=== PATIENT | male | born 1955 | race Caucasian/White ===

== ENCOUNTER → 2023-08-31 13:29 | Outpatient (BNVA) | payer MEDICARE, BC, SELFPAY | PROVIDERS: PCP Internal Medicine; Referring Provider Internal Medicine; Visit Provider Student in an Organized Health Care Education/Training Program | DX: R10.13 Epigastric pain (principal); R11.0 Nausea; Z87.11 Personal history of peptic ulcer disease; F10.90 Alcohol use, unspecified, uncomplicated; Z80.0 Family history of malignant neoplasm of digestive organs | CPT/HCPCS: 99204 ==

== ENCOUNTER 2023-11-08 09:54 | Day surgery (SDC) | payer MEDICARE, BC, SELFPAY ==
[2023-11-08 10:31] VITALS: BP 143/89; PULSE 55; RESP 16; TEMP 36; O2SAT 97
[2023-11-08] MEDS: Lactated Ringers 1,000 ML 80 ML IV (10:45)
--- NOTE | 2023-11-08 10:52 | W.SURGCON ---
Date of service: 11/08/23 Time of Service: 10:53 Assessment and Plan Assessment and plan (1) Stomach ulcer: Status: Acute Assessment and plan: 67-year-old man with a history of stomach ulcers and who has ongoing nausea and dyspepsia. Unclear etiology or significance because he otherwise seems to be getting along just fine with life and the chronicity of the symptoms extensive. After careful and detailed discussion, the patient himself actually thinks it is probably related to excessive alcohol intake on a daily basis as well as possibly being coupled with or in addition to a significant/excessive amount of caffeine. He is not really sure but is suspicious. This is certainly possibility and needs to be considered but I do think an endoscopy is warranted. Considering the history of stomach ulcers and I do symptoms are similar, malignancy should be ruled out with biopsies. H. pylori should also be ruled out. I did tell him that he can consider alcohol cessation for a number of months to see whether or not it makes him feel better but that would be on his own terms and deciphered and discussed with his PCP. Even if he chooses to do this, I do not think this over rules the need for an EGD just to make sure there is no underlying pathology such as gastric cancer. Patient understands the risks, indications and the likely benefits of endoscopy and does agree and wishes to proceed. He understands that elective alcohol cessation is within his own ability to experiment and decipher and will consider. He realizes and expresses an understanding that his EGD may be completely normal and biopsies could be normal too. For his colonoscopies, he has a follow-up plan up at [facility] and I reassured him that that follow-up plan makes sense. Overall plan: EGD with biopsies Qualifiers: Gastric ulcer chronicity: unspecified ulcer chronicity Gastric ulcer complication status: without hemorrhage or perforation Qualified Code(s): K25.9 - Gastric ulcer, unspecified as acute or chronic, without hemorrhage or perforation History of Present Illness Narrative: Patient here for upper endoscopy PFSH All Active Problems Stomach ulcer (Acute) Medical History IBS (irritable bowel syndrome) BPH with obstruction/lower urinary tract symptoms Allergic rhinitis WILFREDO (obstructive sleep apnea) Squamous cell carcinoma of skin unspecified lower limb, including hip Hyperlipidemia Essential (primary) hypertension Surgical History Hx of esophagogastroduodenoscopy Hx of colonoscopy S/P right rotator cuff repair H/O vasectomy Hx of arthroscopy of left knee Hx of sinus surgery Social History Smoking/Tobacco Use Status: Former Tobacco Use Quit Date: 03/13/85 Smoking risk assessment performed?: Yes Alcohol Intake: current Alcohol Intake frequency: 3 or more drinks per day Alcohol type: wine Drug use: Never Substance use type: does not use Housing: house Do you feel safe at home: Yes Do you feel safe in your relationship?: Yes Exam Narrative Exam Narrative: General: Nontoxic, comfortable and interactive Neuro: Alert and orient x 3 Psych: Good mood and affect, good insight and understanding Chest: Nonlabored breathing, no shortness of breath or wheezing Heart: Regular Results Last Vital Signs Temp 96.8 F L 11/08/23 10:31 Pulse 55 L 11/08/23 10:31 Resp 16 11/08/23 10:31 BP 143/89 H 11/08/23 10:31 Pulse Ox 97 11/08/23 10:31
--- NOTE | 2023-11-08 10:54 | W.PM.ENDDOP ---
Date of service: 11/08/23 Time of Service: 10:54 Endoscopy Report PROCEDURE DESCRIPTION: PROCEDURES PERFORMED: 1. EGD with biopsies PREOPERATIVE DIAGNOSIS: Dyspepsia, history of ulcers POSTOPERATIVE DIAGNOSIS: Chronic gastritis, small (1 cm) Hill grade 1 hiatal hernia, bile reflux SURGEON: Holly Verdin MD INDICATION FOR PROCEDURE: 67-year-old male with persistent and ongoing dyspepsia, and has a history of ulcers and significant alcohol intake. FINDINGS: D2/D3 = normal D1/bulb = normal - no ulcers or inflammation Pylorus = normal Antrum = chronic gastritis appearance, no ulcers, cold forceps biopsies were taken to rule out H. pylori routinely. Bile was witnessed refluxing during the procedure. He may have bile reflux gastropathy rather than gastritis. Body = chronic gastritis appearance, biopsies taken with cold forceps technique routinely Fundus = normal, no polyps Cardia = normal Hiatus = small (1 cm) sliding hiatal hernia. Distal esophagus = despite the hernia, no visible inflammation, no esophagitis, no Rahman's, no stricture. I took biopsies because of the hernia. Mid esophagus = normal Proximal esophagus/hypopharynx/vocal cords = normal SURVEILLANCE-INTERVAL/FOLLOW-UP: Follow-up with PCP. likely no role for surveillance. Specimens: Yes EBL: Minimal COMPLICATIONS: None Procedure in detail: The patient gave written consent and was in agreement with the indications, the potential risks as well as the benefits of the procedure. The patient was taken to the endoscopy suite and laid on their left side. Anesthesia was given which was tolerated well. We performed a timeout and we are in agreement I started the procedure. A well-lubricated endoscope was gently and carefully advanced down the esophagus, into the stomach the scope was and through the pylorus into the duodenum. The scope was then slowly withdrawn with the above-noted findings/interventions. The patient tolerated the procedure well and was taken to the PACU stable.
--- NOTE | 2023-11-08 10:56 | W.PM.DSUDISC ---
Date of service: 11/08/23 Time of Service: 10:56 Discharge Plan Disposition Patient Disposition: Home Condition: Good Discharge Details Attending Provider: Nicola Verdin Primary Care Provider: Pat Ramsey Home Meds and New Rx's Prescriptions: No Action montelukast 10 mg tablet 10 mg PO QHS hydrochlorothiazide 25 mg tablet 25 mg PO DAILY tamsulosin 0.4 mg capsule 0.8 mg PO DAILY escitalopram oxalate 10 mg tablet 10 mg PO DAILY metoprolol succinate 50 mg tablet extended release 24 hr 50 mg PO DAILY pravastatin 40 mg tablet 40 mg PO DAILY omeprazole 40 mg capsule,delayed release(DR/EC) 40 mg PO DAILY mometasone 50 mcg/actuation spray,non-aerosol 1 spray intranasal DAILY Rx Instructions: administer into each nostril Dupixent Pen 300 mg/2 mL pen injector 300 mg SUBCUT .q2week acetaminophen [Acetaminophen Extra Strength] 500 mg tablet 500 mg PO ONCE Patient Comments: 1000 mg Discharge Instructions Additional Instructions: FINDINGS: Some chronic?appearing inflammation was seen in your stomach. This may be related to chronic alcohol intake or it may be related to something called by reflux. You can discuss further with your PCP. It is probably the cause of your symptoms. Biopsies were taken routinely. You have a small hiatal hernia. This is unlikely to be causing any issues and nothing needs to be done about it. Overall, follow-up with your PCP as needed. Activity:: Activity as Tolerated Diet:: As Tolerated DS: Diagnosis Discharge Diagnosis (1) Stomach ulcer: Status: Acute
[2023-11-08 11:26] VITALS: BMI 29.9
--- NOTE | 2023-11-08 11:26 | W.ANESPRE ---
General Info Date of Service Date Performed: 11/08/23 Height: 5 ft 6 in Weight: 84.3 kg Body Mass Index (BMI): 29.9 Surgical Procedure: Operation Date: 11/08/23 11:20 Proposed Procedure Side Surgeon p Gastroscopy Nicola Verdin MD Actual Procedure Side Surgeon p Gastroscopy Not Applicable Nicola Verdin MD Meds Allergies and Home Medications Allergies Allergy/AdvReac Type Severity Reaction Status Date / Time Penicillins Allergy Unknown Itching Verified 11/08/23 10:22 Home Medication ?Medication ?Instructions ?Recorded escitalopram oxalate 10 mg tablet 10 mg PO DAILY 08/14/23 hydrochlorothiazide 25 mg tablet 25 mg PO DAILY 08/14/23 metoprolol succinate 50 mg 50 mg PO DAILY 08/14/23 tablet,extended release 24 hr mometasone 50 mcg/actuation nasal 1 spray intranasal DAILY 08/14/23 spray omeprazole 40 mg capsule,delayed 40 mg PO DAILY 08/14/23 release pravastatin 40 mg tablet 40 mg PO DAILY 08/14/23 tamsulosin 0.4 mg capsule 0.8 mg PO DAILY 08/14/23 montelukast 10 mg tablet 10 mg PO QHS 08/31/23 dupilumab 300 mg/2 mL subcutaneous 300 mg subcut .q2week Nasal polyps 11/07/23 pen injector (Dupixent) acetaminophen 500 mg tablet 500 mg PO ONCE 11/08/23 (Acetaminophen Extra Strength) Current Visit Medications: Current Medications Generic Name Dose Route Start Last Admin Trade Name Freq PRN Reason Stop Dose Admin Ringer's Solution 1,000 mls @ 80 mls/hr 11/08/23 06:00 11/08/23 10:45 IV 11/08/23 23:59 80 mls/hr INFUSION JASS Administration IV Miscellaneous Supplies 1 each 11/08/23 06:00 Iv Access IV 11/08/23 23:59 DIRECTED JASS Sodium Chloride 0 ml 11/08/23 06:00 Normal Saline Flush 10 Ml Syr IV 11/08/23 23:59 PRN PRN Sodium Chloride 0 ml 11/08/23 06:00 Normal Saline 10 Ml Vial IJ 11/08/23 23:59 DIRECTED PRN Sterile Water 0 ml 11/08/23 06:00 Water,Injection,Sterile 10 Ml Vial IJ 11/08/23 23:59 DIRECTED PRN PFSH Active Problems Active Problems: Problem Status Onset Code Stomach ulcer Acute K25.9 Medical History Medical History IBS (irritable bowel syndrome) BPH with obstruction/lower urinary tract symptoms Allergic rhinitis WILFREDO (obstructive sleep apnea) Squamous cell carcinoma of skin unspecified lower limb, including hip Hyperlipidemia Essential (primary) hypertension Surgical History Surgical History Hx of esophagogastroduodenoscopy Hx of colonoscopy S/P right rotator cuff repair H/O vasectomy Hx of arthroscopy of left knee Hx of sinus surgery Tobacco Smoking/Tobacco Use Status: Former Tobacco Use Alcohol Alcohol Intake: current Alcohol intake frequency: 3 or more drinks per day Alcohol type: wine Substance Use Substance use: Never Substance use type: does not use Vital Signs and Lab Results Vital Signs Most Recent Vital Signs in EMR: Most Recent Vital Signs Temp Pulse Resp BP Pulse Ox 36 C L 55 L 16 143/89 H 97 11/08/23 10:31 11/08/23 10:31 11/08/23 10:31 11/08/23 10:31 11/08/23 10:31 Lab Results Blood Type / Crossmatch: No Data to Display Complete Blood Count: No Data to Display Complete Metabolic Panel: No Data to Display Liver Function Panel: No Data to Display Coagulation Panel: No Data to Display Cardiac Panel: No Data to Display Arterial Blood Gas: No Data to Display Venous Blood Gas: No Data to Display Pancreas Panel: No Data to Display Thyroid Panel: No Data to Display Infectious Disease: No Data to Display Blood Cultures: No Data to Display Toxicology Panel: No Data to Display Anesthesia Assessment and Plan Anesthesia History Personal History: No History of Anesthesia Complications Family History: No Family History of Anesthesia Complications Exercise Tolerance Exercise Tolerance: Metabolic Equivalents>4 Pertinent Negatives Pertinent Negatives: No Symptoms of GERD Cardiac & Pulmonary Exam Cardiac Exam: Normal S1/S2 Heart Sounds Pulmonary Exam: Clear Bilateral Breath Sounds Implantable Cardiac Device Does patient have a Pacemaker or an ICD?: No Airway Exam Known Difficult Airway: No Mallampati Class: 2 Mouth Opening: Normal (> 3cm) Thyromental Distance: Greater than 3 cm Neck Range of Motion: Full ROM Neck Circumference: Normal Teeth Condition: Normal Dentition and Removable Dentures/Plates Lower (partial) ASA Classification ASA Score: ASA 2 Emergency Case?: No NPO Status NPO Status: NPO Clears >2 hours, Solids >8 hours Anesthesia Plan Resuscitation Status: Full Code Anesthesia Technique: General Anesthesia Airway Planned: Natural Airway Monitors Used: Standard Monitors
--- NOTE | 2023-11-08 11:42 | STOM_PTH ---
PATIENT: Iain Alejandra LOC: [facility] U#:[id number] AGE/SX: 67/M ROOM: RE11/08/[address]: Nicola Verdin : 1955 BED: DIS: 11/08/2023 SPEC #: [id number] RECD: 11/08/23 13:27 STATUS: HARSHAD ORNELAS #: [id number] [place]: 11/08/23 11:[address]: Nicola Verdin DEPT: Surgical Specimen RECD BY: Diana Amaral ENTERED: 11/08/23 13:28 SP TYPE: STOMACH OTHR DR: Pat Ramsey Tissues: 1 - STOMACH BIOPSY 2 - STOMACH BIOPSY 3 - STOMACH BIOPSY 4 - ESOPHAGUS BIOPSY Procedures: GROSS AND MICRO LEVEL 4 IMMUNOPEROXIDASE STAIN Comments: [id number]
[2023-11-08 11:53] VITALS: BP 109/84; PULSE 69; RESP 18; TEMP 36.8; O2SAT 92
[2023-11-08 12:16] VITALS: BP 119/70; PULSE 56; RESP 18; TEMP 37; O2SAT 96
--- NOTE | 2023-11-08 12:53 | W.ANESPOSTOP ---
Postoperative Evaluation Date, Time and Location Date Performed: 11/08/23 Time Performed: 11:55 Patient Location: Day Surgery Unit Vital Signs Most Recent Imported Vital Signs: Most Recent Vital Signs Temp Pulse Resp BP Pulse Ox 37 C 56 L 18 119/70 96 11/08/23 12:16 11/08/23 12:16 11/08/23 12:16 11/08/23 12:16 11/08/23 12:16 Pain Score Most Recent Pain Score: Most Recent Pain Score Pain Level 0 11/08/23 12:16 Assessment Mental Status: Awake (Alert & Oriented to Patient Baseline) Airway and Respiratory Function: Patent airway with normal (patient baseline) respiratory exam Cardiovascular Function: Hemodynamically Stable Hydration Status: Adequately Hydrated Nausea & Vomiting: No Nausea or Vomiting Pain: Pt. Denies Any Pain Peripheral Nerve Block: Patient did not receive a nerve block
== END 2023-11-08 12:30 | disposition home or self-care (01) ==
PROVIDERS: PCP Internal Medicine; Visit Provider Student in an Organized Health Care Education/Training Program
PROC: 0DJ68ZZ Inspection of Stomach, Via Natural or Artificial Opening Endoscopic (ICD-10-PCS; CPT 43235; principal; 2023-11-08 11:15)
DX: K25.9 Gastric ulcer, unspecified as acute or chronic, without hemorrhage or perforation (principal); K44.9 Diaphragmatic hernia without obstruction or gangrene; K29.50 Unspecified chronic gastritis without bleeding; E78.70 Disorder of bile acid and cholesterol metabolism, unspecified; Z87.11 Personal history of peptic ulcer disease; K22.89 Other specified disease of esophagus
CPT/HCPCS: 43239; 00123; 88305; 88361; J2001; J2704

== ENCOUNTER → 2024-08-08 10:43 | Outpatient (BNVA) | payer MEDICARE, BC, SELFPAY | PROVIDERS: PCP Internal Medicine; Referring Provider Internal Medicine; Visit Provider Psychiatry & Neurology Neurology | DX: R56.9 Unspecified convulsions (principal); R29.6 Repeated falls; F10.10 Alcohol abuse, uncomplicated; E11.59 Type 2 diabetes mellitus with other circulatory complications; I10 Essential (primary) hypertension | CPT/HCPCS: 99215 ==